=== PATIENT | male | born 1970 | race Caucasian/White ===

== ENCOUNTER 2020-01-21 21:55 | Emergency (ER) | payer MEDICAID ==
[~2020-01-21] VITALS: Ht 182.9 cm; Wt 70.9 kg
[~2020-01-21 21:55] MED LIST: AZIT500T PO; CEFD300C37 PO; GUAI1TBM11 PO
--- NOTE | 2020-01-21 22:23 | NUR ---
PT BIB [facility] FOR ETOH INTOXICATION. PT ADMITS TO DRINKG "A LOT" TODAY. VSS. PT ABLE TO ANSWER SOME QUESTIONS BUT FALLS ASLEEP QUICKLY. PT WAKES TO VOICE AND THEN FALLS ASLEEP. PT PLACED ON PULSE OX AND BP CUFF. CALL LIGHT IN REACH
--- NOTE | 2020-01-21 23:47 | NUR ---
PT SLEEPING. EVEN RISE AND FALL OF CHEST OBSERVED. VSS. WAITING FOR PT TO SOBER UP BEFORE D/C
--- NOTE | 2020-01-22 01:24 | NUR ---
PT SLEEPING. EVEN RISE AND FALL OF CHEST OBSERVED. VSS
[2020-01-22 01:32] VITALS: BP 111/74
--- NOTE | 2020-01-22 03:45 | NUR ---
PT AMBULATED TO AND FROM BATHROOM WITH A STEADY GAIT. PA INFORMED AND PT TO BE DISCHARGED
--- NOTE | 2020-01-22 04:05 | NUR ---
Patient given discharge instructions and they have confirmed that they understand the instructions. Patient ambulatory with steady gait.
== END 2020-01-22 04:07 | disposition home or self-care (01) ==
LOC: EDBD 21:55 → ED 01-22 04:01 → MERGE 01-22 04:01 → ED 01-22 04:07
DX: F10.120 Alcohol abuse with intoxication, uncomplicated (principal); Y90.0 Blood alcohol level of less than 20 mg/100 ml
CPT/HCPCS: 99283